=== PATIENT | male | born 1960 | race African-American/Black ===

== ENCOUNTER 2019-03-21 19:31 | Inpatient (IN) | payer MEDICAID ==
[~2019-03-21] VITALS: Ht 175.3 cm; Wt 89.0 kg
[2019-03-21] MEDS ORDERED: SODIUM CHLORIDE 0.9% 1,000 ML IV ONE ×2 (20:04→22:00)
[2019-03-21 21:54] LABS: BASOPHILS % 0.2 % (0.0-2.0); EOSINOPHILS % 0.2 % (0.0-5.0); HEMATOCRIT. 39.9 % (42.0-52.0); HEMOGLOBIN. 13.4 g/dL (14.0-18.0); LYMPHOCYTES % 14.1 % (20.0-50.0); MEAN CORPUSCULAR HEMOGLOBIN 31.7 pg (28.0-32.0); MEAN CORPUSCULAR VOLUME 94.4 fL (80.0-94.0); MEAN PLATELET VOLUME 8.3 fl (7.4-10.4); MONOCYTES % 6.9 % (2.0-8.0); NEUTROPHILS % 78.6 % (40.0-76.0); PLATELET 283 x1000/uL (130-400); RED BLOOD CELL COUNT 4.22 mill/uL (4.7-6.1)
[2019-03-21 22:48] LABS: CHLORIDE 106 mEq/L (98-107)
[2019-03-21] MEDS ORDERED: INSULIN LISPRO 100 UNITS/ML SUBCUT ONE (23:30)
[2019-03-21] MEDS ORDERED: ASPIRIN 81MG TABLET PO ONE (23:30)
[2019-03-22 00:10] LABS: INR 1.2; PARTIAL THROMBOPLASTIN TIME 25.7 sec (23.4-31.0)
[2019-03-22] MEDS ORDERED: METHOCARBAMOL 750MG TABLET PO SCH (02:15)
[2019-03-22 06:39] LABS: CLARITY URINE CLEAR (CLEAR); COLOR URINE YELLOW (YELLOW); KETONES URINE 1+ (NEGATIVE); LEUKOCYTE ESTERASE URINE NEGATIVE (NEGATIVE); NITRITE URINE NEGATIVE (NEGATIVE); OCCULT BLOOD URINE NEGATIVE (NEGATIVE); PROTEIN URINE 1+ (NEGATIVE); SPECIFIC GRAVITY URINE 1.031 (1.005-1.030)
[2019-03-22 07:02] LABS: *AMPHETAMINES SCREEN URINE NEGATIVE (NEGATIVE); *BARBITURATES SCREEN URINE NEGATIVE (NEGATIVE); *BENZODIAZEPINES SCREEN URINE NEGATIVE (NEGATIVE); *COCAINE SCREEN URINE NEGATIVE (NEGATIVE)
[2019-03-22 07:03] LABS: CANNABINOID URINE SCREEN NEGATIVE (NEGATIVE); METHADONE URINE SCREEN NEGATIVE (NEGATIVE); OPIATES URINE SCREEN NEGATIVE (NEGATIVE); PHENCYCLIDINE URINE SCREEN NEGATIVE (NEGATIVE)
[2019-03-22] MEDS ORDERED: DEXTROSE 50% WATER 50ML SYRINGE IV PRN (09:45)
[2019-03-22 10:38] VITALS: BP 138/80
[2019-03-22 12:00] VITALS: BP 148/72
[2019-03-22] MEDS: BLOOD SUGAR DIAGNOSTIC STRIP TEST SCH ×3 (13:02→20:51)
[2019-03-22] MEDS: INSULIN LISPRO 100 UNITS/ML SUBCUT SCH ×3 (13:36→21:35)
[2019-03-22] MEDS ORDERED: PNEUMOCOCCAL 23-VAL P-SAC VAC 0.5 ML IM ONE (14:45)
[2019-03-22] MEDS: SODIUM CHLORIDE 0.9% 1,000 ML IV SCH ×2 (15:44→21:29)
[2019-03-22 16:00] VITALS: BP 143/91
[2019-03-22 16:04] LABS: ETHANOL BLOOD < 10 mg/dL
[2019-03-22 16:09] LABS: CREATINE KINASE 203 IU/L (39-308)
[2019-03-22 16:10] LABS: CREATINE KINASE MB FRACTION 3.4 ng/mL (0.5-3.6)
[2019-03-22 20:00] VITALS: BP 134/89
[2019-03-23] VITALS: BP 140/93
[2019-03-23] MEDS ORDERED: ACETAMINOPHEN 325MG TABLET PO PRN
[2019-03-23 00:47] LABS: CREATINE KINASE MB FRACTION 2.1 ng/mL (0.5-3.6)
[2019-03-23 04:00] VITALS: BP 142/90
[2019-03-23] MEDS: BLOOD SUGAR DIAGNOSTIC STRIP TEST SCH ×4 (06:21→21:19)
[2019-03-23 07:00] LABS: BASOPHILS % 0.5 % (0.0-2.0); EOSINOPHILS % 0.5 % (0.0-5.0); HEMOGLOBIN. 13.7 g/dL (14.0-18.0); LYMPHOCYTES % 23.5 % (20.0-50.0); MEAN CORPUSCULAR HEMOGLOBIN 32.1 pg (28.0-32.0); MEAN CORPUSCULAR VOLUME 93.8 fL (80.0-94.0); MEAN PLATELET VOLUME 8.4 fl (7.4-10.4); MONOCYTES % 8.4 % (2.0-8.0); NEUTROPHILS % 67.1 % (40.0-76.0); PLATELET 211 x1000/uL (130-400); RED BLOOD CELL COUNT 4.27 mill/uL (4.7-6.1); RED CELL DISTRIBUTION WIDTH 14.6 % (11.6-14.6)
[2019-03-23 07:19] LABS: CHLORIDE 105 mEq/L (98-107)
[2019-03-23 07:28] LABS: PHOSPHORUS 2.1 mg/dL (2.5-4.9)
[2019-03-23 07:31] LABS: CREATINE KINASE 147 IU/L (39-308)
[2019-03-23 07:36] LABS: CREATINE KINASE MB FRACTION 2.1 ng/mL (0.5-3.6)
[2019-03-23 08:00] VITALS: BP 148/91
[2019-03-23] MEDS: SODIUM CHLORIDE 0.9% 1,000 ML IV SCH ×2 (08:45→17:31)
[2019-03-23] MEDS: INSULIN LISPRO 100 UNITS/ML SUBCUT SCH ×4 (09:50→21:16)
[2019-03-23 12:00] VITALS: BP 126/76
[2019-03-23 16:00] VITALS: BP 128/88
[2019-03-23 20:00] VITALS: BP 142/87
[2019-03-23] MEDS ORDERED: IOHEXOL-350 100 ML BOTTLE ONE (21:40)
[2019-03-23] MEDS: ENOXAPARIN 80MG/0.8ML SYR SUBCUT SCH (23:49)
[2019-03-24] VITALS (7 sets, daily range): BP systolic 124–146; BP diastolic 77–94
[2019-03-24 07:14] LABS: BASOPHILS % 0.3 % (0.0-2.0); CHLORIDE 107 mEq/L (98-107); EOSINOPHILS % 1.1 % (0.0-5.0); HEMATOCRIT. 38.3 % (42.0-52.0); HEMOGLOBIN. 12.7 g/dL (14.0-18.0); LYMPHOCYTES % 25.3 % (20.0-50.0); MEAN CORPUSCULAR HEMOGLOBIN 31.2 pg (28.0-32.0); MEAN CORPUSCULAR VOLUME 93.8 fL (80.0-94.0); MEAN PLATELET VOLUME 8.3 fl (7.4-10.4); MONOCYTES % 9.5 % (2.0-8.0); NEUTROPHILS % 63.8 % (40.0-76.0); PLATELET 203 x1000/uL (130-400); RED BLOOD CELL COUNT 4.08 mill/uL (4.7-6.1); RED CELL DISTRIBUTION WIDTH 14.5 % (11.6-14.6)
[2019-03-24] MEDS: BLOOD SUGAR DIAGNOSTIC STRIP TEST SCH ×4 (07:37→20:49)
[2019-03-24] MEDS: INSULIN LISPRO 100 UNITS/ML SUBCUT SCH ×4 (09:56→20:49)
[2019-03-24] MEDS: ENOXAPARIN 80MG/0.8ML SYR SUBCUT SCH (11:55)
[2019-03-24] MEDS: LISINOPRIL 10MG TABLET PO SCH ×2 (14:06→23:29)
[2019-03-24] MEDS ORDERED: IPRATROPIUM/ALBUTEROL 0.5-3(2.5)MG/3ML NEB HHN PRN (16:00)
[2019-03-24] MEDS: FUROSEMIDE 20MG TABLET PO SCH (18:22)
[2019-03-24] MEDS ORDERED: ENOXAPARIN 100MG/ML SYR SUBCUT SCH (23:30)
[2019-03-25] VITALS (41 sets, daily range): BP systolic 121–176; BP diastolic 73–112
[2019-03-25] MEDS: FUROSEMIDE 20MG TABLET PO SCH ×2 (05:53→18:20)
[2019-03-25 06:21] LABS: CHLORIDE 107 mEq/L (98-107)
[2019-03-25 06:24] LABS: BASOPHILS % 0.6 % (0.0-2.0); EOSINOPHILS % 1.7 % (0.0-5.0); HEMATOCRIT. 35.7 % (42.0-52.0); HEMOGLOBIN. 12.3 g/dL (14.0-18.0); LYMPHOCYTES % 32.2 % (20.0-50.0); MEAN CORPUSCULAR HEMOGLOBIN 31.9 pg (28.0-32.0); MEAN CORPUSCULAR VOLUME 92.8 fL (80.0-94.0); MONOCYTES % 9.3 % (2.0-8.0); NEUTROPHILS % 56.2 % (40.0-76.0); PLATELET 224 x1000/uL (130-400); RED BLOOD CELL COUNT 3.85 mill/uL (4.7-6.1); RED CELL DISTRIBUTION WIDTH 14.4 % (11.6-14.6)
[2019-03-25] MEDS: BLOOD SUGAR DIAGNOSTIC STRIP TEST SCH ×5 (06:32→20:26)
[2019-03-25 06:51] LABS: INR 1.2
[2019-03-25] MEDS: INSULIN LISPRO 100 UNITS/ML SUBCUT SCH ×4 (08:03→20:26)
[2019-03-25] MEDS: LISINOPRIL 10MG TABLET PO SCH (09:27)
[2019-03-25] MEDS ORDERED: MIDAZOLAM HCL 2 MG/2 ML VIAL ONE (10:40)
[2019-03-25] MEDS ORDERED: FENTANYL CITRATE/PF 50MCG/ML 2ML VIAL ONE (10:40)
[2019-03-25] MEDS ORDERED: MIDAZOLAM HCL 5 MG/5 ML VIAL IV ONE (10:50)
[2019-03-25] MEDS ORDERED: ALTEPLASE 4 MG in SODIUM CHLORIDE 0.9% 100 ML IV SCH ×8 (11:00→18:00)
[2019-03-25] MEDS ORDERED: HEPARIN 25,000 UNITS PREMIX 500 ML IV SCH (11:00)
[2019-03-25] MEDS ORDERED: IOHEXOL-300 50 ML BOTTLE IV ONE (11:34)
[2019-03-25] MEDS ORDERED: MIDAZOLAM HCL 2 MG/2 ML VIAL IV ONE (11:45)
[2019-03-25] MEDS ORDERED: NON FORMULARY PATIENT HOME MED XX SCH ×2 (12:45→13:00)
[2019-03-25] MEDS: POTASSIUM CHLORIDE 20MEQ TABLET SR PO SCH (14:38)
[2019-03-25] MEDS: ADEMPAS 0.5 MG PO SCH ×2 (17:02→22:00)
[2019-03-25] MEDS: LISINOPRIL 5MG TABLET PO SCH (20:23)
[2019-03-25 21:10] LABS: BASOPHILS % 0.6 % (0.0-2.0); EOSINOPHILS % 1.1 % (0.0-5.0); HEMATOCRIT. 38.6 % (42.0-52.0); HEMOGLOBIN. 12.9 g/dL (14.0-18.0); LYMPHOCYTES % 20.9 % (20.0-50.0); MEAN CORPUSCULAR HEMOGLOBIN 31.4 pg (28.0-32.0); MEAN CORPUSCULAR VOLUME 94.3 fL (80.0-94.0); MEAN PLATELET VOLUME 8.3 fl (7.4-10.4); MONOCYTES % 9.3 % (2.0-8.0); NEUTROPHILS % 68.1 % (40.0-76.0); PLATELET 238 x1000/uL (130-400); RED CELL DISTRIBUTION WIDTH 15.2 % (11.6-14.6)
[2019-03-25 21:17] LABS: INR 1.1; PROTHROMBIN TIME 11.2 sec (9.6-11.0)
[2019-03-26] VITALS (24 sets, daily range): BP systolic 111–153; BP diastolic 53–95
[2019-03-26 01:33] LABS: BASOPHILS % 0.4 % (0.0-2.0); EOSINOPHILS % 1.3 % (0.0-5.0); HEMOGLOBIN. 12.8 g/dL (14.0-18.0); LYMPHOCYTES % 22.4 % (20.0-50.0); MEAN CORPUSCULAR HEMOGLOBIN 31.5 pg (28.0-32.0); MEAN CORPUSCULAR VOLUME 93.6 fL (80.0-94.0); MEAN PLATELET VOLUME 7.1 fl (7.4-10.4); MONOCYTES % 11.1 % (2.0-8.0); NEUTROPHILS % 64.8 % (40.0-76.0); PLATELET 212 x1000/uL (130-400); RED BLOOD CELL COUNT 4.06 mill/uL (4.7-6.1); RED CELL DISTRIBUTION WIDTH 14.9 % (11.6-14.6)
[2019-03-26 01:41] LABS: INR 1.2; PROTHROMBIN TIME 11.9 sec (9.6-11.0)
[2019-03-26] MEDS ORDERED: ALTEPLASE IV SCH ×4 (02:00)
[2019-03-26] MEDS ORDERED: SODIUM CHLORIDE 0.9% IV SCH ×4 (02:00)
[2019-03-26 05:24] LABS: BASOPHILS % 0.8 % (0.0-2.0); EOSINOPHILS % 1.6 % (0.0-5.0); HEMATOCRIT. 36.1 % (42.0-52.0); HEMOGLOBIN. 12.1 g/dL (14.0-18.0); LYMPHOCYTES % 20.7 % (20.0-50.0); MEAN CORPUSCULAR HEMOGLOBIN 31.3 pg (28.0-32.0); MEAN CORPUSCULAR VOLUME 93.4 fL (80.0-94.0); MONOCYTES % 10.7 % (2.0-8.0); NEUTROPHILS % 66.2 % (40.0-76.0); PLATELET 207 x1000/uL (130-400); RED BLOOD CELL COUNT 3.86 mill/uL (4.7-6.1); RED CELL DISTRIBUTION WIDTH 14.7 % (11.6-14.6)
[2019-03-26 05:27] LABS: CHLORIDE 107 mEq/L (98-107)
[2019-03-26] MEDS: FUROSEMIDE 20MG TABLET PO SCH ×2 (06:01→19:19)
[2019-03-26] MEDS: BLOOD SUGAR DIAGNOSTIC STRIP TEST SCH ×4 (08:12→20:45)
[2019-03-26] MEDS: INSULIN LISPRO 100 UNITS/ML SUBCUT SCH ×4 (08:20→20:45)
[2019-03-26] MEDS ORDERED: HEPARIN 25,000 UNITS PREMIX 500 ML IV SCH (10:30)
[2019-03-26] MEDS ORDERED: HEPARIN 5000 UNITS/ML VIAL IV PRN ×2 (10:45)
[2019-03-26] MEDS ORDERED: HEPARIN 25,000 UNITS PREMIX 500 ML IV PRN (10:45)
[2019-03-26] MEDS: POTASSIUM CHLORIDE 20MEQ TABLET SR PO SCH ×2 (10:46→10:47)
[2019-03-26] MEDS: ADEMPAS 0.5 MG PO SCH ×2 (10:48→20:45)
[2019-03-26] MEDS: LISINOPRIL 5MG TABLET PO SCH ×2 (10:48→20:45)
[2019-03-26] MEDS ORDERED: IOHEXOL-350 100 ML BOTTLE ONE (10:54)
[2019-03-26] MEDS: APIXABAN 5 MG TABLET PO SCH ×2 (12:19→20:45)
[2019-03-27] VITALS (24 sets, daily range): BP systolic 112–156; BP diastolic 66–87
[2019-03-27 06:03] LABS: BASOPHILS % 0.5 % (0.0-2.0); EOSINOPHILS % 1.4 % (0.0-5.0); HEMATOCRIT. 40.4 % (42.0-52.0); HEMOGLOBIN. 13.6 g/dL (14.0-18.0); LYMPHOCYTES % 20.3 % (20.0-50.0); MEAN CORPUSCULAR HEMOGLOBIN 31.4 pg (28.0-32.0); MEAN CORPUSCULAR VOLUME 93.1 fL (80.0-94.0); MEAN PLATELET VOLUME 7.7 fl (7.4-10.4); MONOCYTES % 11.2 % (2.0-8.0); NEUTROPHILS % 66.6 % (40.0-76.0); PLATELET 235 x1000/uL (130-400); RED BLOOD CELL COUNT 4.34 mill/uL (4.7-6.1); RED CELL DISTRIBUTION WIDTH 14.8 % (11.6-14.6)
[2019-03-27 06:05] LABS: CHLORIDE 105 mEq/L (98-107)
[2019-03-27] MEDS: FUROSEMIDE 20MG TABLET PO SCH ×2 (06:50→17:27)
[2019-03-27] MEDS: BLOOD SUGAR DIAGNOSTIC STRIP TEST SCH ×4 (07:50→21:08)
[2019-03-27] MEDS: INSULIN LISPRO 100 UNITS/ML SUBCUT SCH ×4 (08:20→21:38)
[2019-03-27] MEDS: APIXABAN 5 MG TABLET PO SCH ×2 (08:55→17:27)
[2019-03-27] MEDS: LISINOPRIL 5MG TABLET PO SCH ×2 (08:55→21:08)
[2019-03-27] MEDS: ADEMPAS 0.5 MG PO SCH ×2 (08:55→21:08)
[2019-03-28] VITALS (19 sets, daily range): BP systolic 100–140; BP diastolic 36–91
[2019-03-28] MEDS: BLOOD SUGAR DIAGNOSTIC STRIP TEST SCH ×3 (07:50→21:00)
[2019-03-28] MEDS: FUROSEMIDE 20MG TABLET PO SCH ×2 (08:00→17:36)
[2019-03-28] MEDS: LISINOPRIL 5MG TABLET PO SCH ×2 (08:00→21:51)
[2019-03-28] MEDS: INSULIN LISPRO 100 UNITS/ML SUBCUT SCH ×4 (08:01→22:22)
[2019-03-28] MEDS: APIXABAN 5 MG TABLET PO SCH ×2 (08:01→17:36)
[2019-03-28] MEDS: POTASSIUM CHLORIDE 20MEQ TABLET SR PO SCH (08:02)
[2019-03-28] MEDS: ADEMPAS 0.5 MG PO SCH (08:02)
[2019-03-28 16:29] LABS: CHLORIDE 104 mEq/L (98-107)
[2019-03-29] VITALS (22 sets, daily range): BP systolic 97–141; BP diastolic 43–86
[2019-03-29] MEDS: FUROSEMIDE 20MG TABLET PO SCH ×2 (06:05→17:32)
[2019-03-29] MEDS: BLOOD SUGAR DIAGNOSTIC STRIP TEST SCH ×4 (06:15→20:34)
[2019-03-29] MEDS: INSULIN LISPRO 100 UNITS/ML SUBCUT SCH ×4 (07:52→20:34)
[2019-03-29] MEDS: APIXABAN 5 MG TABLET PO SCH ×2 (10:10→17:32)
[2019-03-29] MEDS: POTASSIUM CHLORIDE 20MEQ TABLET SR PO SCH (10:10)
[2019-03-29] MEDS: LISINOPRIL 5MG TABLET PO SCH ×2 (10:11→20:35)
[2019-03-29 18:19] LABS: HEMATOCRIT 42.6 % (42.0-52.0); HEMOGLOBIN 14.2 g/dL (14.0-18.0); MEAN CORPUSCULAR HEMOGLOBIN 31.1 pg (28.0-32.0); MEAN CORPUSCULAR VOLUME 93.4 fL (80.0-94.0); PLATELET 328 x1000/uL (130-400); RED BLOOD CELL COUNT 4.56 mill/uL (4.7-6.1); RED CELL DISTRIBUTION WIDTH 14.9 % (11.6-14.6)
[2019-03-29] MEDS: ADEMPAS 0.5 MG PO SCH (20:55)
[2019-03-30] VITALS (15 sets, daily range): BP systolic 99–132; BP diastolic 46–89
[2019-03-30] MEDS: FUROSEMIDE 20MG TABLET PO SCH ×2 (05:42→17:11)
[2019-03-30] MEDS: BLOOD SUGAR DIAGNOSTIC STRIP TEST SCH ×4 (06:38→21:01)
[2019-03-30 07:30] LABS: BASOPHILS % 1.3 % (0.0-2.0); EOSINOPHILS % 2.6 % (0.0-5.0); HEMATOCRIT. 43.8 % (42.0-52.0); HEMOGLOBIN. 14.8 g/dL (14.0-18.0); LYMPHOCYTES % 24.7 % (20.0-50.0); MEAN CORPUSCULAR HEMOGLOBIN 31.6 pg (28.0-32.0); MEAN CORPUSCULAR VOLUME 93.5 fL (80.0-94.0); MEAN PLATELET VOLUME 7.7 fl (7.4-10.4); MONOCYTES % 11.5 % (2.0-8.0); NEUTROPHILS % 59.9 % (40.0-76.0); PLATELET 348 x1000/uL (130-400); RED BLOOD CELL COUNT 4.69 mill/uL (4.7-6.1); RED CELL DISTRIBUTION WIDTH 14.7 % (11.6-14.6)
[2019-03-30] MEDS: INSULIN LISPRO 100 UNITS/ML SUBCUT SCH ×4 (07:53→20:59)
[2019-03-30] MEDS: POTASSIUM CHLORIDE 20MEQ TABLET SR PO SCH (08:25)
[2019-03-30] MEDS: APIXABAN 5 MG TABLET PO SCH ×2 (08:26→17:11)
[2019-03-30] MEDS: ADEMPAS 0.5 MG PO SCH ×2 (08:26→20:57)
[2019-03-30] MEDS: LISINOPRIL 5MG TABLET PO SCH ×2 (08:26→20:57)
[2019-03-30 10:43] LABS: CHLORIDE 102 mEq/L (98-107)
[2019-03-30] MEDS ORDERED: EMPA25TA PO (15:39)
[2019-03-30] MEDS ORDERED: METF-815 MT (15:39)
[2019-03-31] VITALS (14 sets, daily range): BP systolic 105–140; BP diastolic 39–87
[2019-03-31] MEDS: FUROSEMIDE 20MG TABLET PO SCH (06:07)
[2019-03-31] MEDS: BLOOD SUGAR DIAGNOSTIC STRIP TEST SCH ×2 (07:06→11:50)
[2019-03-31] MEDS: APIXABAN 5 MG TABLET PO SCH (07:46)
[2019-03-31] MEDS: POTASSIUM CHLORIDE 20MEQ TABLET SR PO SCH (07:46)
[2019-03-31] MEDS: ADEMPAS 0.5 MG PO SCH (07:47)
[2019-03-31] MEDS: INSULIN LISPRO 100 UNITS/ML SUBCUT SCH ×2 (07:51→12:37)
[2019-03-31] MEDS: LISINOPRIL 5MG TABLET PO SCH (10:43)
[2019-04-05] MEDS ORDERED: APIXABAN 5 MG TABLET PO SCH (17:00)
== END 2019-03-31 18:25 | disposition home or self-care (01) | DRG 134 ==
LOC: ER 19:31 → 7WST 03-22 00:44 → EDBEDREQ 03-22 01:10 → EDBEDREQTM 03-22 01:10 → EDBEDREQDT 03-22 01:10 → ENRESERV 03-22 07:39 → 6WST 03-22 20:15 → CVICU 03-25 12:36 → 3WST 03-28 12:40
PROVIDERS: ADMIT Internal Medicine Nephrology; ATTEND Internal Medicine Nephrology
PROC: 4A133B3 Monitoring of Arterial Pressure, Pulmonary, Percutaneous Approach (ICD-10-PCS; principal; 2019-03-25)
PROC: 02HP32Z Insertion of Monitoring Device into Pulmonary Trunk, Percutaneous Approach (ICD-10-PCS; 2019-03-25)
PROC: 3E06317 Introduction of Other Thrombolytic into Central Artery, Percutaneous Approach (ICD-10-PCS; 2019-03-25)
DX: I26.99 Other pulmonary embolism without acute cor pulmonale (principal); I21.4 Non-ST elevation (NSTEMI) myocardial infarction; J96.00 Acute respiratory failure, unspecified whether with hypoxia or hypercapnia; I27.22 Pulmonary hypertension due to left heart disease; I50.23 Acute on chronic systolic (congestive) heart failure; D68.59 Other primary thrombophilia; I27.23 Pulmonary hypertension due to lung diseases and hypoxia; I11.0 Hypertensive heart disease with heart failure; I82.402 Acute embolism and thrombosis of unspecified deep veins of left lower extremity; I42.9 Cardiomyopathy, unspecified; J45.909 Unspecified asthma, uncomplicated; Z77.22 Contact with and (suspected) exposure to environmental tobacco smoke (acute) (chronic); W18.30XA Fall on same level, unspecified, initial encounter; E11.9 Type 2 diabetes mellitus without complications; R74.0 Nonspecific elevation of levels of transaminase and lactic acid dehydrogenase [LDH]; Z86.718 Personal history of other venous thrombosis and embolism
CPT/HCPCS: 36415; 37211; 70551; 71045; 71275; 75741; 80048; 80305; 80320; 82550; 82553; 82962; 83735; 83880; 84100; 84484; 85027; 85384; 90732; 93005; 93306; 93970; 96360; 96361; 96372; 97161; 97164; 99152; 99153; 99285; C1725; C1766; C1769; J1644; J1650; J1815; J2250; J2997; J3010; J7030; J7040; J7050; Q9967; G0480; G0500

== ENCOUNTER 2020-07-18 20:12 | Emergency (ER) | payer MEDICAID ==
[~2020-07-18] VITALS: Ht 175.3 cm; Wt 81.0 kg
[~2020-07-18 20:12] MED LIST: METF-815 MT
[2020-07-18 22:18] LABS: BASOPHILS % 0.6 % (0.0-2.0); EOSINOPHILS % 0.9 % (0.0-5.0); HEMATOCRIT. 38.4 % (42.0-52.0); HEMOGLOBIN. 13.2 g/dL (14.0-18.0); LYMPHOCYTES % 17.2 % (20.0-50.0); MEAN CORPUSCULAR HEMOGLOBIN 31.1 pg (28.0-32.0); MEAN CORPUSCULAR VOLUME 90.8 fL (80.0-94.0); MEAN PLATELET VOLUME 7.9 fl (7.4-10.4); MONOCYTES % 12.1 % (2.0-8.0); NEUTROPHILS % 69.2 % (40.0-76.0); PLATELET 293 x1000/uL (130-400); RED BLOOD CELL COUNT 4.23 mill/uL (4.7-6.1)
[2020-07-18 22:20] LABS: CHLORIDE 101 mEq/L (98-107)
[2020-07-18 22:24] LABS: ETHANOL BLOOD < 10 mg/dL
[2020-07-18 22:49] LABS: CLARITY URINE CLEAR (CLEAR); COLOR URINE DARK YELLOW (YELLOW); KETONES URINE TRACE (NEGATIVE); LEUKOCYTE ESTERASE URINE TRACE (NEGATIVE); NITRITE URINE NEGATIVE (NEGATIVE); OCCULT BLOOD URINE NEGATIVE (NEGATIVE); PROTEIN URINE 2+ (NEGATIVE); SPECIFIC GRAVITY URINE 1.025 (1.005-1.030)
[2020-07-18 23:07] LABS: *AMPHETAMINES SCREEN URINE NEGATIVE (NEGATIVE); *BARBITURATES SCREEN URINE NEGATIVE (NEGATIVE); *BENZODIAZEPINES SCREEN URINE NEGATIVE (NEGATIVE); *COCAINE SCREEN URINE NEGATIVE (NEGATIVE); METHADONE URINE SCREEN NEGATIVE (NEGATIVE); OPIATES URINE SCREEN NEGATIVE (NEGATIVE)
[2020-07-18 23:08] LABS: CANNABINOID URINE SCREEN NEGATIVE (NEGATIVE)
[2020-07-18 23:09] LABS: PHENCYCLIDINE URINE SCREEN NEGATIVE (NEGATIVE)
[2020-07-18] MEDS ORDERED: IPRATROPIUM BROMIDE (0.02%) 0.5MG/2.5ML NEB HHN STA (23:56)
[2020-07-18] MEDS ORDERED: ALBUTEROL (0.083%) 2.5MG/3ML NEB HHN STA (23:56)
[2020-07-19] MEDS ORDERED: DEXAMETHASONE 10 MG/ML VIAL IV ONE
[2020-07-19 02:01] VITALS: BP 117/74
== END 2020-07-19 02:03 | disposition home or self-care (01) ==
LOC: ER 20:12
DX: Z20.828 Contact with and (suspected) exposure to other viral communicable diseases (principal); I10 Essential (primary) hypertension; E11.9 Type 2 diabetes mellitus without complications; Z86.718 Personal history of other venous thrombosis and embolism; Z86.711 Personal history of pulmonary embolism
CPT/HCPCS: 36415; 71045; 80053; 80305; 80320; 81003; 83880; 84484; 85025; 87635; 93005; 94640; 96374; 99285; J1100; Z7610; G0480

== ENCOUNTER 2021-07-24 11:12 | Emergency (ER) | payer MEDICAID ==
[~2021-07-24] VITALS: Ht 175.3 cm; Wt 103.0 kg
[~2021-07-24 11:12] MED LIST changes: -METF-815 MT; +METF-873 MT
[2021-07-24 11:16] VITALS: BP 137/66
[2021-07-24] MEDS ORDERED: APIX5TAB4 PO (11:20)
[2021-07-24] MEDS ORDERED: NITROGLYCERIN 0.4MG TABLET SL SL PRN (11:30)
[2021-07-24] MEDS ORDERED: ASPIRIN 81MG TABLET PO ONE (11:30)
[2021-07-24 11:46] LABS: EOSINOPHILS % 2.1 % (0.0-5.0); HEMATOCRIT. 35.2 % (42.0-52.0); HEMOGLOBIN. 11.7 g/dL (14.0-18.0); MEAN CORPUSCULAR HEMOGLOBIN 31.4 pg (28.0-32.0); MEAN CORPUSCULAR VOLUME 94.1 fL (80.0-94.0); MEAN PLATELET VOLUME 7.9 fl (7.4-10.4); MONOCYTES % 8.3 % (2.0-8.0); NEUTROPHILS % 64.6 % (40.0-76.0); PLATELET 299 x1000/uL (130-400); RED BLOOD CELL COUNT 3.74 mill/uL (4.7-6.1); RED CELL DISTRIBUTION WIDTH 14.2 % (11.6-14.6)
[2021-07-24 11:52] LABS: CHLORIDE 105 mEq/L (98-107)
[2021-07-24] MEDS ORDERED: IOHEXOL-350 100 ML BOTTLE ONE (17:37)
== END 2021-07-24 17:24 | disposition home or self-care (01) ==
LOC: ER 11:12
DX: R07.89 Other chest pain (principal); I48.91 Unspecified atrial fibrillation; E11.9 Type 2 diabetes mellitus without complications; I10 Essential (primary) hypertension
CPT/HCPCS: 36415; 71045; 71275; 80053; 83880; 84484; 85025; 93005; 99285; Q9967; Z7610

== ENCOUNTER 2022-08-06 20:24 | Inpatient (IN) | payer MEDICAID ==
[~2022-08-06] VITALS: Ht 175.3 cm; Wt 99.9 kg
[~2022-08-06 20:24] MED LIST changes: +APIX5TAB4 PO
[2022-08-06] MEDS ORDERED: HYDROCODONE/ACETAMINOPHEN 5/325MG TABLET PO ONE (23:45)
[2022-08-07 00:04] LABS: BASOPHILS % 0.7 % (0.0-2.0); EOSINOPHILS % 1.8 % (0.0-5.0); HEMATOCRIT. 36.3 % (42.0-52.0); HEMOGLOBIN. 12.3 g/dL (14.0-18.0); LYMPHOCYTES % 27.8 % (20.0-50.0); MEAN CORPUSCULAR HEMOGLOBIN 31.4 pg (28.0-32.0); MEAN CORPUSCULAR VOLUME 92.9 fL (80.0-94.0); MEAN PLATELET VOLUME 7.3 fl (7.4-10.4); MONOCYTES % 10.3 % (2.0-8.0); NEUTROPHILS % 59.4 % (40.0-76.0); PLATELET 328 x1000/uL (130-400); RED BLOOD CELL COUNT 3.91 mill/uL (4.7-6.1); RED CELL DISTRIBUTION WIDTH 14.2 % (11.6-14.6)
[2022-08-07 03:40] LABS: CLARITY URINE CLEAR (CLEAR); COLOR URINE YELLOW (YELLOW); KETONES URINE TRACE (NEGATIVE); LEUKOCYTE ESTERASE URINE NEGATIVE (NEGATIVE); NITRITE URINE NEGATIVE (NEGATIVE); OCCULT BLOOD URINE NEGATIVE (NEGATIVE); PROTEIN URINE 1+ (NEGATIVE); SPECIFIC GRAVITY URINE 1.029 (1.005-1.030)
[2022-08-07] MEDS ORDERED: CLONIDINE 0.1MG TABLET PO PRN (05:00)
[2022-08-07] MEDS ORDERED: MAGNESIUM/ALUMINUM HYDROXIDE/SIMETHICONE 30ML UDC PO PRN (05:00)
[2022-08-07] MEDS ORDERED: HYDROCODONE/ACETAMINOPHEN 5/325MG TABLET PO PRN (05:00)
[2022-08-07] MEDS ORDERED: DEXTROSE 50% WATER 50ML SYRINGE IV PRN ×2 (05:00→15:15)
[2022-08-07] MEDS ORDERED: IPRATROPIUM/ALBUTEROL 0.5-3(2.5)MG/3ML NEB HHN PRN (05:00)
[2022-08-07] MEDS ORDERED: ACETAMINOPHEN 325MG TABLET PO PRN ×2 (05:00)
[2022-08-07] MEDS ORDERED: ONDANSETRON HCL 4MG/2ML INJ IV PRN (05:00)
[2022-08-07] MEDS ORDERED: GUAIFENESIN 200MG/10ML SUGAR FREE UDC PO PRN (05:00)
[2022-08-07] MEDS ORDERED: DOCUSATE SODIUM 100MG CAPSULE PO PRN (05:00)
[2022-08-07] MEDS ORDERED: ENOXAPARIN 100MG/ML SYR SUBCUT NR (05:45)
[2022-08-07 06:15] LABS: PARTIAL THROMBOPLASTIN TIME 29.3 sec (23.4-31.0); PROTHROMBIN TIME 10.7 sec (9.6-11.0)
[2022-08-07 06:46] LABS: BASOPHILS % 0.6 % (0.0-2.0); HEMATOCRIT. 35.2 % (42.0-52.0); LYMPHOCYTES % 27.9 % (20.0-50.0); MEAN CORPUSCULAR HEMOGLOBIN 31.3 pg (28.0-32.0); MEAN CORPUSCULAR VOLUME 92.1 fL (80.0-94.0); MEAN PLATELET VOLUME 7.9 fl (7.4-10.4); NEUTROPHILS % 57.5 % (40.0-76.0); PLATELET 310 x1000/uL (130-400); RED BLOOD CELL COUNT 3.82 mill/uL (4.7-6.1); RED CELL DISTRIBUTION WIDTH 14.4 % (11.6-14.6)
[2022-08-07] MEDS ORDERED: INSULIN LISPRO 100 UNITS/ML SUBCUT SCH (08:20)
[2022-08-07] MEDS ORDERED: BLOOD SUGAR DIAGNOSTIC STRIP TEST SCH (09:00)
[2022-08-07 12:30] VITALS: BP 147/87
[2022-08-07 13:05] VITALS: BP 147/87
[2022-08-07 14:53] LABS: CHLORIDE 103 mEq/L (98-107)
[2022-08-07 16:20] VITALS: BP 155/85
[2022-08-07] MEDS: BLOOD SUGAR DIAGNOSTIC STRIP TEST SCH ×2 (16:48→22:18)
[2022-08-07] MEDS ORDERED: METFORMIN HCL 500MG TABLET PO SCH (17:00)
[2022-08-07] MEDS: METFORMIN HCL 500MG TABLET PO SCH ×2 (17:40→17:50)
[2022-08-07] MEDS: APIXABAN 5 MG TABLET PO SCH (17:50)
[2022-08-07] MEDS: GLIPIZIDE XL 2.5MG TABLET PO SCH (17:50)
[2022-08-07] MEDS: INSULIN LISPRO 100 UNITS/ML SUBCUT SCH ×2 (17:54→22:20)
[2022-08-07 20:00] VITALS: BP 117/71
[2022-08-07] MEDS ORDERED: NALOXONE HCL 0.4MG/ML VIAL IV PRN (20:00)
[2022-08-07 20:14] LABS: HDL CHOLESTEROL 38 mg/dL (40-59); LDL CHOLESTEROL 170 mg/dL (5-100)
[2022-08-07 20:15] LABS: T4 FREE 1.33 ng/dL (0.76-1.46)
[2022-08-07] MEDS ORDERED: INFLUENZA VACCINE 05/PF 0.5 ML SYRINGE IM ONE (20:45)
[2022-08-07] MEDS: CARVEDILOL 3.125 MG TABLET PO SCH (22:21)
[2022-08-07 23:53] LABS: *AMPHETAMINES SCREEN URINE NEGATIVE (NEGATIVE); *BARBITURATES SCREEN URINE NEGATIVE (NEGATIVE); *BENZODIAZEPINES SCREEN URINE NEGATIVE (NEGATIVE); *COCAINE SCREEN URINE NEGATIVE (NEGATIVE); CANNABINOID URINE SCREEN NEGATIVE (NEGATIVE); METHADONE URINE SCREEN NEGATIVE (NEGATIVE); OPIATES URINE SCREEN PRESUMTIVE POSITIVE (NEGATIVE); PHENCYCLIDINE URINE SCREEN NEGATIVE (NEGATIVE)
[2022-08-08] VITALS: BP 122/69
[2022-08-08 00:56] LABS: CREATINE KINASE 173 IU/L (39-308)
[2022-08-08 04:00] VITALS: BP 127/76
[2022-08-08] MEDS: BLOOD SUGAR DIAGNOSTIC STRIP TEST SCH ×4 (06:42→20:29)
[2022-08-08] MEDS: INSULIN LISPRO 100 UNITS/ML SUBCUT SCH ×4 (06:50→20:29)
[2022-08-08 07:11] LABS: BASOPHILS % 0.9 % (0.0-2.0); EOSINOPHILS % 1.9 % (0.0-5.0); HEMATOCRIT. 36.1 % (42.0-52.0); LYMPHOCYTES % 20.6 % (20.0-50.0); MEAN CORPUSCULAR HEMOGLOBIN 31.1 pg (28.0-32.0); MEAN CORPUSCULAR VOLUME 93.5 fL (80.0-94.0); MEAN PLATELET VOLUME 8.2 fl (7.4-10.4); MONOCYTES % 8.5 % (2.0-8.0); NEUTROPHILS % 68.1 % (40.0-76.0); PLATELET 313 x1000/uL (130-400); RED BLOOD CELL COUNT 3.86 mill/uL (4.7-6.1); RED CELL DISTRIBUTION WIDTH 14.3 % (11.6-14.6)
[2022-08-08 08:00] VITALS: BP 129/75
[2022-08-08] MEDS: GLIPIZIDE XL 2.5MG TABLET PO SCH ×2 (08:20→17:09)
[2022-08-08] MEDS: APIXABAN 5 MG TABLET PO SCH ×2 (08:21→17:09)
[2022-08-08] MEDS: CARVEDILOL 3.125 MG TABLET PO SCH ×2 (08:21→20:30)
[2022-08-08] MEDS: LISINOPRIL 5MG TABLET PO SCH (08:21)
[2022-08-08] MEDS: METFORMIN HCL 500MG TABLET PO SCH ×2 (08:21→17:09)
[2022-08-08] MEDS: FUROSEMIDE 40MG TABLET PO SCH (08:24)
[2022-08-08 12:00] VITALS: BP 136/59
[2022-08-08 16:00] VITALS: BP 139/76
[2022-08-08] MEDS ORDERED: DOXA1TAB2 PO (18:24)
[2022-08-08] MEDS ORDERED: CARV3.1242 PO (18:24)
[2022-08-08] MEDS ORDERED: APIX5TAB PO (18:24)
[2022-08-08] MEDS ORDERED: METF-414 PO (18:24)
[2022-08-08 20:00] VITALS: BP 139/76
[2022-08-08 20:37] LABS: CHLORIDE 106 mEq/L (98-107)
[2022-08-09] VITALS: BP 120/87
[2022-08-09 04:00] VITALS: BP 131/82
[2022-08-09] MEDS: BLOOD SUGAR DIAGNOSTIC STRIP TEST SCH ×3 (06:46→16:42)
[2022-08-09] MEDS: INSULIN LISPRO 100 UNITS/ML SUBCUT SCH ×3 (06:46→17:22)
[2022-08-09 07:43] LABS: BASOPHILS % 0.6 % (0.0-2.0); EOSINOPHILS % 1.8 % (0.0-5.0); HEMATOCRIT. 36.5 % (42.0-52.0); HEMOGLOBIN. 12.5 g/dL (14.0-18.0); LYMPHOCYTES % 27.4 % (20.0-50.0); MEAN CORPUSCULAR HEMOGLOBIN 31.5 pg (28.0-32.0); MEAN CORPUSCULAR VOLUME 92.3 fL (80.0-94.0); MEAN PLATELET VOLUME 8.2 fl (7.4-10.4); MONOCYTES % 8.8 % (2.0-8.0); NEUTROPHILS % 61.4 % (40.0-76.0); PLATELET 348 x1000/uL (130-400); RED BLOOD CELL COUNT 3.96 mill/uL (4.7-6.1)
[2022-08-09 08:00] VITALS: BP 127/73
[2022-08-09] MEDS: METFORMIN HCL 500MG TABLET PO SCH ×2 (08:29→16:47)
[2022-08-09] MEDS: APIXABAN 5 MG TABLET PO SCH ×2 (08:41→16:42)
[2022-08-09] MEDS: CARVEDILOL 3.125 MG TABLET PO SCH (08:41)
[2022-08-09] MEDS: FUROSEMIDE 40MG TABLET PO SCH (08:41)
[2022-08-09] MEDS: GLIPIZIDE XL 2.5MG TABLET PO SCH ×2 (08:42→16:42)
[2022-08-09] MEDS: LISINOPRIL 5MG TABLET PO SCH (08:42)
[2022-08-09 10:48] LABS: CHLORIDE 104 mEq/L (98-107)
[2022-08-09] MEDS ORDERED: LISI-186 PO (11:32)
[2022-08-09] MEDS ORDERED: METF-414 PO (11:32)
[2022-08-09] MEDS ORDERED: FURO40TA5 PO (11:32)
[2022-08-09 12:00] VITALS: BP 102/56
[2022-08-09 16:00] VITALS: BP 112/67
[2022-08-09 17:49] VITALS: BP 112/67
[2022-08-10 09:10] LABS: IMMUNOGLOBULIN A 263 mg/dL (61-437); IMMUNOGLOBULIN G 1551 mg/dL (603-1613); IMMUNOGLOBULIN M 70 mg/dL (20-172)
== END 2022-08-09 19:25 | disposition home health service (06) | DRG 347 ==
LOC: ER 20:24 → 8WST 08-07 02:51 → EDBEDREQSVC 08-07 08:48
PROVIDERS: ADMIT Internal Medicine; ATTEND Internal Medicine
DX: M48.061 Spinal stenosis, lumbar region without neurogenic claudication (principal); E11.51 Type 2 diabetes mellitus with diabetic peripheral angiopathy without gangrene; I82.509 Chronic embolism and thrombosis of unspecified deep veins of unspecified lower extremity; I50.22 Chronic systolic (congestive) heart failure; I11.0 Hypertensive heart disease with heart failure; D64.9 Anemia, unspecified; G89.29 Other chronic pain; I10 Essential (primary) hypertension; I48.91 Unspecified atrial fibrillation; M51.17 Intervertebral disc disorders with radiculopathy, lumbosacral region; Z20.822 Contact with and (suspected) exposure to COVID-19; Z79.01 Long term (current) use of anticoagulants; Z79.899 Other long term (current) drug therapy; Z86.711 Personal history of pulmonary embolism; Z79.84 Long term (current) use of oral hypoglycemic drugs; Z95.828 Presence of other vascular implants and grafts; Z82.49 Family history of ischemic heart disease and other diseases of the circulatory system
CPT/HCPCS: 36415; 71045; 72100; 72148; 80053; 80061; 80305; 81003; 82550; 82784; 82962; 83036; 83735; 84100; 84153; 84439; 84443; 85025; 86334; 87426; 90686; 93005; 93970; 99285; J1650; J1815; G0103

== ENCOUNTER 2022-10-08 12:12 | Inpatient (IN) | payer MEDICAID ==
[~2022-10-08] VITALS: Ht 175.3 cm; Wt 95.7 kg
[~2022-10-08 12:12] MED LIST changes: +APIX5TAB PO; -APIX5TAB4 PO; +CARV3.1242 PO; +DOXA1TAB2 PO; +FURO40TA5 PO; +LISI-186 PO; +METF-414 PO; -METF-873 MT
[2022-10-08 14:48] LABS: BASOPHILS % 0.7 % (0.0-2.0); EOSINOPHILS % 1.4 % (0.0-5.0); HEMATOCRIT. 34.7 % (42.0-52.0); HEMOGLOBIN. 11.7 g/dL (14.0-18.0); LYMPHOCYTES % 22.4 % (20.0-50.0); MEAN CORPUSCULAR HEMOGLOBIN 31.1 pg (28.0-32.0); MEAN CORPUSCULAR VOLUME 92.6 fL (80.0-94.0); MEAN PLATELET VOLUME 8.2 fl (7.4-10.4); MONOCYTES % 7.6 % (2.0-8.0); NEUTROPHILS % 67.9 % (40.0-76.0); PLATELET 289 x1000/uL (130-400); RED BLOOD CELL COUNT 3.75 mill/uL (4.7-6.1); RED CELL DISTRIBUTION WIDTH 14.4 % (11.6-14.6)
[2022-10-08 14:54] LABS: CHLORIDE 106 mEq/L (98-107)
[2022-10-08 14:58] LABS: D-DIMER 0.42 mg/L FEU (<0.50); PROTHROMBIN TIME 10.9 sec (9.6-11.0)
[2022-10-08] MEDS ORDERED: IOHEXOL-350 100 ML BOTTLE ONE (16:10)
[2022-10-08 20:30] VITALS: BP 128/78
[2022-10-08 21:00] VITALS: BP 128/78
[2022-10-08] MEDS ORDERED: ACETAMINOPHEN 325MG TABLET PO PRN (21:27)
[2022-10-08] MEDS ORDERED: HYDROCODONE/ACETAMINOPHEN 5/325MG TABLET PO PRN (21:27)
[2022-10-08] MEDS ORDERED: CEFTRIAXONE 1,000 MG in DEXTROSE 5% WATER 50 ML IV SCH (23:00)
[2022-10-09] VITALS: BP 114/59
[2022-10-09] MEDS ORDERED: IPRATROPIUM/ALBUTEROL 0.5-3(2.5)MG/3ML NEB HHN SCH
[2022-10-09] MEDS ORDERED: AZITHROMYCIN 500 MG in DEXT 5% WATER 250 ML IV NR ×2
[2022-10-09] MEDS: ALBUTEROL (0.083%) 2.5MG/3ML NEB HHN SCH ×4 (01:14→12:25)
[2022-10-09] MEDS: IPRATROPIUM BROMIDE (0.02%) 0.5MG/2.5ML NEB HHN SCH ×4 (01:15→12:25)
[2022-10-09 04:00] VITALS: BP 135/68
[2022-10-09 08:00] VITALS: BP 116/76
[2022-10-09 12:00] VITALS: BP 138/63
[2022-10-09] MEDS ORDERED: NALOXONE HCL 0.4MG/ML VIAL IV PRN (14:45)
[2022-10-09 16:08] VITALS: BP 140/63
[2022-10-09] MEDS ORDERED: ALBUTEROL (0.083%) 2.5MG/3ML NEB HHN PRN (16:15)
[2022-10-09] MEDS ORDERED: IPRATROPIUM BROMIDE (0.02%) 0.5MG/2.5ML NEB HHN PRN (16:15)
[2022-10-09] MEDS ORDERED: GUAIFENESIN-DM 200MG-20MG/10ML UDC PO PRN (16:15)
[2022-10-09] MEDS: FUROSEMIDE 40MG TABLET PO SCH (17:09)
[2022-10-09] MEDS: APIXABAN 5 MG TABLET PO SCH (17:09)
[2022-10-09 20:00] VITALS: BP 115/64
[2022-10-09] MEDS ORDERED: CEFTRIAXONE 1,000 MG in DEXTROSE 5% WATER 50 ML IV SCH (20:00)
[2022-10-09] MEDS ORDERED: PNEUMOCOCCAL 23-VAL P-SAC VAC 0.5 ML IM ONE (21:00)
[2022-10-09] MEDS ORDERED: AZITHROMYCIN 500 MG in DEXT 5% WATER 250 ML IV SCH (21:00)
[2022-10-09] MEDS ORDERED: INFLUENZA VACCINE 05/PF 0.5 ML SYRINGE IM ONE (21:00)
[2022-10-10 04:00] VITALS: BP 120/71
[2022-10-10 07:35] LABS: BASOPHILS % 0.8 % (0.0-2.0); EOSINOPHILS % 1.8 % (0.0-5.0); HEMATOCRIT. 33.7 % (42.0-52.0); HEMOGLOBIN. 11.6 g/dL (14.0-18.0); LYMPHOCYTES % 22.9 % (20.0-50.0); MEAN CORPUSCULAR HEMOGLOBIN 31.5 pg (28.0-32.0); MEAN CORPUSCULAR VOLUME 91.5 fL (80.0-94.0); MEAN PLATELET VOLUME 8.1 fl (7.4-10.4); MONOCYTES % 9.9 % (2.0-8.0); NEUTROPHILS % 64.6 % (40.0-76.0); PLATELET 289 x1000/uL (130-400); RED BLOOD CELL COUNT 3.68 mill/uL (4.7-6.1); RED CELL DISTRIBUTION WIDTH 14.4 % (11.6-14.6)
[2022-10-10 08:00] VITALS: BP 128/69
[2022-10-10 08:29] LABS: CHLORIDE 104 mEq/L (98-107)
[2022-10-10] MEDS: FUROSEMIDE 40MG TABLET PO SCH (09:17)
[2022-10-10] MEDS: APIXABAN 5 MG TABLET PO SCH ×2 (09:17→17:38)
[2022-10-10 12:00] VITALS: BP 135/83
[2022-10-10] MEDS ORDERED: IOHEXOL-350 100 ML BOTTLE ONE (15:22)
[2022-10-10 16:00] VITALS: BP 132/72
[2022-10-10 18:36] VITALS: BP 132/72
[2022-10-10] MEDS ORDERED: DEXTROSE 50% WATER 50ML SYRINGE IV PRN (19:00)
[2022-10-10 20:00] VITALS: BP 136/72
[2022-10-10] MEDS: INSULIN LISPRO 100 UNITS/ML SUBCUT SCH (20:11)
[2022-10-10] MEDS: BLOOD SUGAR DIAGNOSTIC STRIP TEST SCH (21:03)
[2022-10-11] VITALS: BP 127/80
[2022-10-11 04:00] VITALS: BP 115/68
[2022-10-11] MEDS: BLOOD SUGAR DIAGNOSTIC STRIP TEST SCH (07:20)
[2022-10-11 08:20] VITALS: BP 117/73
[2022-10-11] MEDS: INSULIN LISPRO 100 UNITS/ML SUBCUT SCH ×2 (08:32→12:38)
[2022-10-11] MEDS ORDERED: INSULIN GLARGINE 100 UNITS/ML SUBCUT SCH (10:00)
[2022-10-11] MEDS: FUROSEMIDE 40MG TABLET PO SCH (10:16)
[2022-10-11] MEDS: APIXABAN 5 MG TABLET PO SCH (10:17)
[2022-10-11 12:00] VITALS: BP 129/68
[2022-10-11 12:42] VITALS: BP 129/68
[2022-10-11 16:00] VITALS: BP 146/85
[2022-10-11] MEDS ORDERED: FLUTICASONE PROPIONATE 50MCG/SPRAY BOTTLE BOTHNSTRLS SCH (21:00)
== END 2022-10-11 18:00 | disposition home or self-care (01) | DRG 145 ==
LOC: ER 12:12 → EDBEDREQSVC 15:17 → EDBEDREQ 15:17 → MICUSO 17:05 → EDBEDREQTM 17:13 → EDBEDREQ 17:13 → 6EST 20:44
PROVIDERS: ADMIT Internal Medicine; ATTEND Internal Medicine
DX: R04.2 Hemoptysis (principal); I50.23 Acute on chronic systolic (congestive) heart failure; D68.59 Other primary thrombophilia; I42.9 Cardiomyopathy, unspecified; I82.412 Acute embolism and thrombosis of left femoral vein; E11.9 Type 2 diabetes mellitus without complications; D64.9 Anemia, unspecified; I11.0 Hypertensive heart disease with heart failure; J45.909 Unspecified asthma, uncomplicated; K44.9 Diaphragmatic hernia without obstruction or gangrene; R26.89 Other abnormalities of gait and mobility; R09.82 Postnasal drip; F17.210 Nicotine dependence, cigarettes, uncomplicated; Z86.711 Personal history of pulmonary embolism; Z79.01 Long term (current) use of anticoagulants; Z86.16 Personal history of COVID-19; Z86.718 Personal history of other venous thrombosis and embolism; Z95.828 Presence of other vascular implants and grafts; Z82.49 Family history of ischemic heart disease and other diseases of the circulatory system
CPT/HCPCS: 36415; 71045; 71275; 74177; 80048; 80053; 82962; 83880; 84484; 85025; 85379; 90686; 90732; 93005; 93970; 94640; 97161; 99285; J0456; J0696; J1815; J7060; Q9967

== ENCOUNTER 2023-03-12 14:37 | Emergency (ER) | payer MEDICAID ==
[~2023-03-12] VITALS: Ht 175.3 cm; Wt 105.0 kg
[2023-03-12 14:47] VITALS: O2SAT 100
[2023-03-12 15:27] LABS: BASOPHILS % 0.3 % (0.0-2.0); HEMATOCRIT. 32.1 % (42.0-52.0); HEMOGLOBIN. 10.7 g/dL (14.0-18.0); LYMPHOCYTES % 25.1 % (20.0-50.0); MEAN CORPUSCULAR HEMOGLOBIN 28.7 pg (28.0-32.0); MEAN CORPUSCULAR VOLUME 86.6 fL (80.0-94.0); MONOCYTES % 13.6 % (2.0-8.0); PLATELET 275 x1000/uL (130-400); RED BLOOD CELL COUNT 3.71 mill/uL (4.7-6.1); RED CELL DISTRIBUTION WIDTH 14.1 % (11.6-14.6)
[2023-03-12 15:36] LABS: CHLORIDE 105 mEq/L (98-107)
[2023-03-12 16:07] LABS: CLARITY URINE CLEAR (CLEAR); COLOR URINE YELLOW (YELLOW); KETONES URINE TRACE (NEGATIVE); LEUKOCYTE ESTERASE URINE NEGATIVE (NEGATIVE); NITRITE URINE NEGATIVE (NEGATIVE); OCCULT BLOOD URINE NEGATIVE (NEGATIVE); PH URINE 5.5 (4.5-8.0); PROTEIN URINE 1+ (NEGATIVE)
[2023-03-13] MEDS ORDERED: FUROSEMIDE 40MG/4ML VIAL IVP ONE (00:45)
[2023-03-13] MEDS ORDERED: CARV3.1242 PO (02:36)
[2023-03-13] MEDS ORDERED: LISI-186 PO (02:36)
[2023-03-13] MEDS ORDERED: FURO40TA5 PO (02:36)
[2023-03-13 03:04] VITALS: BP 133/71; PULSE 95; RESP 20; TEMP 98.1
== END 2023-03-13 03:00 | disposition home or self-care (01) ==
LOC: ER 14:37
DX: R07.89 Other chest pain (principal); I10 Essential (primary) hypertension; E11.9 Type 2 diabetes mellitus without complications; Z98.890 Other specified postprocedural states
CPT/HCPCS: 80053; 81003; 83880; 85025; 84484; 36415; 71045; 93005; 99283; 96374; J1940; Z7610 ×3

== ENCOUNTER 2024-07-07 21:58 | Inpatient (IN) | payer MEDICARE, MEDICAID ==
[~2024-07-07] VITALS: Ht 175.3 cm; Wt 83.9 kg
[~2024-07-07 21:58] MED LIST changes: +ALBU6.7H15 INH; -CARV3.1242 PO; +COR6 MT; +DOCU-150 PO; -DOXA1TAB2 PO; +FURO-151 MT; -FURO40TA5 PO; +GLIP5TAB22 PO; +LEVO-65 MT; -LISI-186 PO; +LOSA25TA26 MT; +MAG-55 MT; -METF-414 PO; +METF-416 PO; +METH-371 PO; +OMEP40CA20 MT; +POTA-205 PO; +TAMS-11 MT
[2024-07-07 23:16] LABS: BASOPHILS % 0.4 % (0.0-2.0); EOSINOPHILS % 0.3 % (0.0-5.0); HEMATOCRIT. 34.3 % (42.0-52.0); HEMOGLOBIN. 11.2 g/dL (14.0-18.0); LYMPHOCYTES % 19.6 % (20.0-50.0); MEAN CORPUSCULAR HEMOGLOBIN 28.8 pg (28.0-32.0); MEAN CORPUSCULAR HGB CONC 32.6 g/dL (31.0-37.0); MEAN CORPUSCULAR VOLUME 88.2 fL (80.0-94.0); MEAN PLATELET VOLUME 7.7 fl (7.4-10.4); MONOCYTES % 11.4 % (2.0-8.0); NEUTROPHILS % 68.3 % (40.0-76.0); PLATELET 195 x1000/uL (130-400); RED BLOOD CELL COUNT 3.89 mill/uL (4.7-6.1); RED CELL DISTRIBUTION WIDTH 14.5 % (11.6-14.6); WHITE BLOOD COUNT 5.9 x1000/uL (4.5-11.0)
[2024-07-07 23:24] LABS: CHLORIDE 104 mEq/L (98-107); POTASSIUM 3.7 mEq/L (3.5-5.1); SODIUM 138 mEq/L (136-145)
[2024-07-07 23:25] LABS: CALCIUM 10.2 mg/dL (8.7-10.4); CARBON DIOXIDE 28 mEq/L (21-32)
[2024-07-07 23:26] LABS: INR 1.1; PROTHROMBIN TIME 12.5 sec (9.6-11.0)
[2024-07-07 23:30] LABS: GLUCOSE 152 mg/dL (70-105); UREA NITROGEN BLOOD 10 mg/dL (9-23)
[2024-07-07 23:32] LABS: ALANINE AMINOTRANSFERASE 26 IU/L (10-49); ALBUMIN 3.9 g/dL (3.2-4.8); ASPARTATE AMINOTRANSFERASE 44 IU/L (<34); BILIRUBIN DIRECT 0.8 mg/dL (<=3.0)
[2024-07-07 23:33] LABS: BILIRUBIN TOTAL 1.7 mg/dL (0.1-1.0); PROTEIN TOTAL 7.7 g/dL (6.0-8.3)
[2024-07-07] MEDS: MORPHINE SULFATE 4 MG/ML INJ (FOR IV/IM USE) IV STA (23:50)
[2024-07-07] MEDS: ONDANSETRON HCL 4MG/2ML INJ IV STA (23:50)
[2024-07-07] MEDS: FUROSEMIDE 40MG/4ML VIAL IVP NR (23:50)
[2024-07-08 00:11] LABS: ETHANOL BLOOD < 10 mg/dL (<10); TROPONIN I HIGH SENSITIVITY 54 ng/L (3.0-53)
[2024-07-08] MEDS: ASPIRIN 325MG EC TABLET PO NR (00:30)
[2024-07-08 04:38] LABS: CLARITY URINE CLEAR (CLEAR); COLOR URINE YELLOW (YELLOW); GLUCOSE URINE NEGATIVE (NEGATIVE); KETONES URINE NEGATIVE (NEGATIVE); LEUKOCYTE ESTERASE URINE NEGATIVE (NEGATIVE); NITRITE URINE NEGATIVE (NEGATIVE); OCCULT BLOOD URINE TRACE (NEGATIVE); PH URINE 5.5 (4.5-8.0); PROTEIN URINE NEGATIVE (NEGATIVE); SPECIFIC GRAVITY URINE 1.012 (1.005-1.030); UROBILINOGEN URINE 0.2 E.U./dL (0.2-1.0)
[2024-07-08 04:51] LABS: *AMPHETAMINES SCREEN URINE NEGATIVE (NEGATIVE)
[2024-07-08 04:52] LABS: *BARBITURATES SCREEN URINE NEGATIVE (NEGATIVE); *BENZODIAZEPINES SCREEN URINE NEGATIVE (NEGATIVE); *COCAINE SCREEN URINE NEGATIVE (NEGATIVE); CANNABINOID URINE SCREEN NEGATIVE (NEGATIVE); ECSTASY MDMA SCREEN URINE NEGATIVE (NEGATIVE); METHADONE URINE SCREEN NEGATIVE (NEGATIVE); OPIATES URINE SCREEN PRESUMPTIVE POSITIVE (NEGATIVE); PHENCYCLIDINE URINE SCREEN NEGATIVE (NEGATIVE)
[2024-07-08 04:56] LABS: BACTERIA URINE NONE SEEN; RBC URINE NONE SEEN /hpf (0-2); SQUAMOUS EPITHELIAL CELL URINE NONE SEEN /lpf (RARE/1+); WBC URINE NONE SEEN /hpf (0-2)
[2024-07-08 06:54] LABS: TROPONIN I HIGH SENSITIVITY 54 ng/L (3.0-53)
[2024-07-08 09:39] LABS: HEMATOCRIT. 31.5 % (42.0-52.0); HEMOGLOBIN. 10.5 g/dL (14.0-18.0); MEAN CORPUSCULAR HEMOGLOBIN 29.2 pg (28.0-32.0); MEAN CORPUSCULAR HGB CONC 33.3 g/dL (31.0-37.0); MEAN CORPUSCULAR VOLUME 87.6 fL (80.0-94.0); MEAN PLATELET VOLUME 8.4 fl (7.4-10.4); PLATELET 180 x1000/uL (130-400); RED CELL DISTRIBUTION WIDTH 14.2 % (11.6-14.6); WHITE BLOOD COUNT 5.2 x1000/uL (4.5-11.0)
[2024-07-08 09:41] LABS: CARBON DIOXIDE 27 mEq/L (21-32); CHLORIDE 106 mEq/L (98-107); DIFFERENTIAL COMMENT 1; POTASSIUM 3.4 mEq/L (3.5-5.1); SODIUM 140 mEq/L (136-145)
[2024-07-08 09:42] LABS: CALCIUM 9.7 mg/dL (8.7-10.4)
[2024-07-08 09:47] LABS: CREATININE 0.9 mg/dL (0.6-1.3); GLUCOSE 102 mg/dL (70-105); UREA NITROGEN BLOOD 10 mg/dL (9-23)
[2024-07-08 09:48] LABS: ALANINE AMINOTRANSFERASE 23 IU/L (10-49); ALBUMIN 3.4 g/dL (3.2-4.8); ASPARTATE AMINOTRANSFERASE 41 IU/L (<34)
[2024-07-08 09:49] LABS: BILIRUBIN DIRECT 0.7 mg/dL (<=3.0); BILIRUBIN TOTAL 1.4 mg/dL (0.1-1.0); PROTEIN TOTAL 6.8 g/dL (6.0-8.3)
[2024-07-08] MEDS: ENOXAPARIN 40MG/0.4ML SYR SUBCUT SCH (10:45)
[2024-07-08] MEDS: PANTOPRAZOLE SODIUM 40 MG/VIAL IV SCH (10:45)
[2024-07-08] MEDS ORDERED: DOCUSATE SODIUM 100MG CAPSULE PO PRN (11:00)
[2024-07-08] MEDS ORDERED: DEXTROSE 50% WATER 50ML SYRINGE IV PRN (11:00)
[2024-07-08] MEDS ORDERED: ONDANSETRON HCL 4MG/2ML INJ IV PRN (11:00)
[2024-07-08] MEDS ORDERED: CLONIDINE 0.1MG TABLET PO PRN (11:00)
[2024-07-08] MEDS ORDERED: IPRATROPIUM/ALBUTEROL 0.5-3(2.5)MG/3ML NEB HHN PRN (11:00)
[2024-07-08] MEDS ORDERED: ACETAMINOPHEN 325MG TABLET PO PRN ×2 (11:00)
[2024-07-08] MEDS: POTASSIUM CHLORIDE 20MEQ TABLET SR PO NR (11:29)
[2024-07-08] MEDS: BLOOD SUGAR DIAGNOSTIC STRIP TEST SCH (12:43)
[2024-07-08] MEDS: INSULIN LISPRO 100 UNITS/ML SUBCUT SCH (12:46)
[2024-07-08] MEDS: FUROSEMIDE 40MG/4ML VIAL IVP NR ×2 (12:58→17:35)
[2024-07-08] MEDS: IOHEXOL-350 100 ML BOTTLE ONE (12:59)
[2024-07-08 14:15] LABS: THYROID STIMULATING HORMONE < 0.10 uIU/mL (0.55-4.78)
[2024-07-08 14:16] LABS: T4 FREE 6.41 ng/dL (0.89-1.76)
[2024-07-08] MEDS ORDERED: IOHEXOL-350 100 ML BOTTLE ONE (14:54)
[2024-07-08 15:23] LABS: PLATELET ESTIMATE NORMAL
[2024-07-08 15:45] VITALS: BP 124/67; PULSE 102; RESP 16; TEMP 36.1956
[2024-07-08 16:00] VITALS: BP 124/67; PULSE 102; RESP 16; TEMP 36.16956; O2SAT 99
[2024-07-08 16:16] LABS: CREATINE KINASE MB FRACTION 0.9 ng/mL (0.5-3.6)
[2024-07-08] MEDS: POTASSIUM CHLORIDE 20MEQ/PACKET PO NR (17:35)
[2024-07-08] MEDS ORDERED: PNEUMOCOCCAL 20-VAL CONJ-DIP CRM 0.5ML IM ONE (19:15)
[2024-07-08 20:00] VITALS: BP 135/78; PULSE 110; RESP 18; TEMP 36.28068; O2SAT 97
[2024-07-08] MEDS: PIPERACILLIN/TAZO 3.375G/50ML 50 ML IV SCH (21:56)
[2024-07-08] MEDS: CARVEDILOL 6.25 MG TABLET PO SCH (21:56)
[2024-07-08] MEDS ORDERED: IOHEXOL-300 100 ML BOTTLE ONE (22:59)
[2024-07-09] VITALS: BP 126/67; PULSE 100; RESP 19; TEMP 36.72516; O2SAT 98
[2024-07-09 01:19] LABS: CREATINE KINASE MB FRACTION < 0.5 ng/mL (0.5-3.6)
[2024-07-09 01:22] LABS: CREATINE KINASE 49 IU/L (46-171)
[2024-07-09 01:43] LABS: TROPONIN I HIGH SENSITIVITY 77 ng/L (3.0-53)
[2024-07-09 04:00] VITALS: BP 107/63; PULSE 91; RESP 20; TEMP 36.78072; O2SAT 98
[2024-07-09 07:52] LABS: CHLORIDE 105 mEq/L (98-107); SODIUM 141 mEq/L (136-145)
[2024-07-09 07:53] LABS: CALCIUM 9.5 mg/dL (8.7-10.4); CARBON DIOXIDE 27 mEq/L (21-32)
[2024-07-09 07:58] LABS: GLUCOSE 98 mg/dL (70-105); IRON 34 ug/dL (65-175)
[2024-07-09 07:59] LABS: BILIRUBIN TOTAL 1.4 mg/dL (0.1-1.0); LDL CHOLESTEROL 49 mg/dL (5-100); TRIGLYCERIDE 65 mg/dL (0-150); UREA NITROGEN BLOOD 16 mg/dL (9-23)
[2024-07-09 08:00] VITALS: BP 104/46; PULSE 87; RESP 18; TEMP 36.78072; O2SAT 98
[2024-07-09 08:00] LABS: ALANINE AMINOTRANSFERASE 24 IU/L (10-49); ALBUMIN 3.4 g/dL (3.2-4.8); ASPARTATE AMINOTRANSFERASE 36 IU/L (<34); BILIRUBIN DIRECT 0.7 mg/dL (<=3.0); CHOLESTEROL 98 mg/dL (<200); HDL CHOLESTEROL 26 mg/dL (>55); PHOSPHORUS 3.9 mg/dL (2.5-4.9)
[2024-07-09 08:01] LABS: PROTEIN TOTAL 7.1 g/dL (6.0-8.3); TOTAL IRON BINDING CAPACITY 261 ug/dl (250-425)
[2024-07-09 08:02] LABS: CREATININE 1.7 mg/dL (0.6-1.3)
[2024-07-09] MEDS: FUROSEMIDE 40MG/4ML VIAL IVP SCH (08:29)
[2024-07-09] MEDS: LOSARTAN 25 MG TABLET PO SCH (08:29)
[2024-07-09] MEDS ORDERED: ASPIRIN 81MG EC TABLET PO SCH (09:00)
[2024-07-09 09:58] LABS: HEMATOCRIT. 32.9 % (42.0-52.0); HEMOGLOBIN. 10.7 g/dL (14.0-18.0); MEAN CORPUSCULAR HEMOGLOBIN 28.5 pg (28.0-32.0); MEAN CORPUSCULAR HGB CONC 32.4 g/dL (31.0-37.0); MEAN CORPUSCULAR VOLUME 87.8 fL (80.0-94.0); MEAN PLATELET VOLUME 8.7 fl (7.4-10.4); PLATELET 192 x1000/uL (130-400); RED BLOOD CELL COUNT 3.74 mill/uL (4.7-6.1); RED CELL DISTRIBUTION WIDTH 14.4 % (11.6-14.6); WHITE BLOOD COUNT 5.9 x1000/uL (4.5-11.0)
[2024-07-09 10:05] LABS: DIFFERENTIAL COMMENT 1
[2024-07-09 12:00] VITALS: BP 119/68; PULSE 99; RESP 18; TEMP 36.61404; O2SAT 99
[2024-07-09 12:23] LABS: FERRITIN 110 ng/mL (22-322); FOLIC ACID (FOLATE) SERUM 8.33 ng/mL (>5.38); VITAMIN B12 SERUM 1338 pg/mL (211-911)
[2024-07-09 12:32] LABS: HEPATITIS B SURFACE ANTIGEN NEGATIVE (Negative)
[2024-07-09 12:55] LABS: HEPATITIS C AB NON REACTIVE (Neg) (Negative)
[2024-07-09] MEDS: SODIUM CHLORIDE 0.9% 1,000 ML IV SCH (13:18)
[2024-07-09 16:00] VITALS: BP 114/54; PULSE 96; RESP 18; TEMP 36.78072; O2SAT 99
[2024-07-09] MEDS: ENOXAPARIN 80MG/0.8ML SYR SUBCUT SCH (18:35)
[2024-07-09 20:00] VITALS: BP 135/70; PULSE 103; RESP 19; TEMP 36.44736; O2SAT 99
[2024-07-10] VITALS: BP 128/67; PULSE 93; RESP 20; TEMP 36.78072; O2SAT 98
[2024-07-10 04:00] VITALS: BP 118/63; PULSE 84; RESP 19; TEMP 36.22512; O2SAT 100
[2024-07-10 08:00] VITALS: BP 125/52; PULSE 96; RESP 18; TEMP 36.61404; O2SAT 99
[2024-07-10 12:00] VITALS: BP 103/53; PULSE 83; RESP 18; TEMP 36.78072; O2SAT 99
[2024-07-10 16:00] VITALS: BP 115/52; PULSE 89; RESP 18; TEMP 36.61404; O2SAT 96
[2024-07-10 17:28] LABS: PLATELET ESTIMATE NORMAL
[2024-07-10 20:00] VITALS: BP 108/61; PULSE 120; RESP 18; TEMP 36.72516; O2SAT 98
[2024-07-10 22:24] LABS: HEMATOCRIT 33.6 % (42.0-52.0); HEMOGLOBIN 11.1 g/dL (14.0-18.0); MEAN CORPUSCULAR HEMOGLOBIN 29.2 pg (28.0-32.0); MEAN CORPUSCULAR HGB CONC 32.9 g/dL (31.0-37.0); MEAN CORPUSCULAR VOLUME 88.6 fL (80.0-94.0); PLATELET 188 x1000/uL (130-400); RED BLOOD CELL COUNT 3.79 mill/uL (4.7-6.1); RED CELL DISTRIBUTION WIDTH 14.6 % (11.6-14.6)
[2024-07-11] VITALS: BP 129/59; PULSE 118; RESP 20; TEMP 36.78072; O2SAT 100
[2024-07-11 04:00] VITALS: BP 134/65; PULSE 97; RESP 20; TEMP 36.55848; O2SAT 98
[2024-07-11 06:14] LABS: POTASSIUM 3.6 mEq/L (3.5-5.1)
[2024-07-11 06:15] LABS: CALCIUM 8.9 mg/dL (8.7-10.4)
[2024-07-11 06:28] LABS: HEMATOCRIT. 31.1 % (42.0-52.0); HEMOGLOBIN. 10.1 g/dL (14.0-18.0); MEAN CORPUSCULAR HEMOGLOBIN 28.2 pg (28.0-32.0); MEAN CORPUSCULAR HGB CONC 32.6 g/dL (31.0-37.0); MEAN CORPUSCULAR VOLUME 86.4 fL (80.0-94.0); MEAN PLATELET VOLUME 8.4 fl (7.4-10.4); PLATELET 180 x1000/uL (130-400); RED CELL DISTRIBUTION WIDTH 14.1 % (11.6-14.6); WHITE BLOOD COUNT 5.2 x1000/uL (4.5-11.0)
[2024-07-11 06:50] LABS: CREATININE 3.3 mg/dL (0.6-1.3)
[2024-07-11 07:34] LABS: DIFFERENTIAL COMMENT 1
[2024-07-11 08:00] VITALS: BP 138/86; PULSE 89; RESP 18; TEMP 36.89184; O2SAT 98
[2024-07-11 12:00] VITALS: BP 129/65; PULSE 86; RESP 16; TEMP 36.72516; O2SAT 97
[2024-07-11] MEDS ORDERED: HEPARIN 25,000 UNITS PREMIX 250 ML IV SCH (14:30)
[2024-07-11] MEDS ORDERED: HEPARIN BOLUS PRN aPTT 37-44 IV (14:45)
[2024-07-11] MEDS ORDERED: HEPARIN BOLUS PRN aPTT <36 IV (14:45)
[2024-07-11 16:00] VITALS: BP 129/74; PULSE 86; RESP 20; TEMP 36.72516; O2SAT 98
[2024-07-11 16:57] LABS: GIANT PLATELETS 1+; PLATELET ESTIMATE NORMAL
[2024-07-11 18:39] LABS: POTASSIUM 3.9 mEq/L (3.5-5.1)
[2024-07-11 18:41] LABS: CALCIUM 8.7 mg/dL (8.7-10.4)
[2024-07-11 18:45] LABS: CREATININE 3.4 mg/dL (0.6-1.3)
[2024-07-11 20:00] VITALS: BP 115/66; PULSE 89; RESP 18; TEMP 36.50292; O2SAT 99
[2024-07-11] MEDS: HEPARIN 80 UNITS/KG BOLUS IV NR (22:06)
[2024-07-11] MEDS: HEPARIN 25,000 UNITS PREMIX 250 ML IV SCH (22:12)
[2024-07-12] VITALS: BP 106/56; PULSE 80; RESP 18; TEMP 37.00296; O2SAT 99
[2024-07-12] MEDS ORDERED: HEPARIN BOLUS PRN aPTT 37-44 IV (02:00)
[2024-07-12 04:00] VITALS: BP 129/75; PULSE 84; RESP 18; TEMP 37.00296; O2SAT 100
[2024-07-12 04:20] LABS: HEMATOCRIT. 31.5 % (42.0-52.0); HEMOGLOBIN. 10.7 g/dL (14.0-18.0); MEAN CORPUSCULAR HEMOGLOBIN 29.2 pg (28.0-32.0); MEAN CORPUSCULAR HGB CONC 33.8 g/dL (31.0-37.0); MEAN CORPUSCULAR VOLUME 86.4 fL (80.0-94.0); MEAN PLATELET VOLUME 7.6 fl (7.4-10.4); PLATELET 172 x1000/uL (130-400); RED BLOOD CELL COUNT 3.65 mill/uL (4.7-6.1); RED CELL DISTRIBUTION WIDTH 14.5 % (11.6-14.6); WHITE BLOOD COUNT 5.3 x1000/uL (4.5-11.0)
[2024-07-12 04:33] LABS: DIFFERENTIAL COMMENT 1
[2024-07-12 04:37] LABS: POTASSIUM 3.6 mEq/L (3.5-5.1)
[2024-07-12 04:39] LABS: CALCIUM 8.7 mg/dL (8.7-10.4)
[2024-07-12 04:44] LABS: CREATININE 3.3 mg/dL (0.6-1.3)
[2024-07-12] MEDS ORDERED: LIDOCAINE HCL 1% 10 MG/ML 10ML VIAL ONE (07:37)
[2024-07-12 08:00] VITALS: BP 117/66; PULSE 77; RESP 17; TEMP 36.05844; O2SAT 95
[2024-07-12 12:00] VITALS: BP 121/61; PULSE 90; RESP 17; TEMP 36.16956; O2SAT 98
[2024-07-12 16:00] VITALS: BP 131/70; PULSE 70; RESP 18; TEMP 36.28068; O2SAT 96
[2024-07-12] MEDS: HEPARIN 25,000 UNITS PREMIX 250 ML IV SCH (18:07)
[2024-07-12 18:14] LABS: PLATELET ESTIMATE NORMAL
[2024-07-12 20:00] VITALS: BP 124/69; PULSE 85; RESP 18; TEMP 36.55848; O2SAT 100
[2024-07-13] VITALS: BP 121/66; PULSE 83; RESP 18; TEMP 36.89184; O2SAT 100
[2024-07-13] MEDS: HEPARIN BOLUS PRN aPTT <36 IV (01:04)
[2024-07-13 04:00] VITALS: BP 135/76; PULSE 79; RESP 18; TEMP 36.55848; O2SAT 100
[2024-07-13 07:39] LABS: CHLORIDE 106 mEq/L (98-107); POTASSIUM 3.5 mEq/L (3.5-5.1); SODIUM 138 mEq/L (136-145)
[2024-07-13 07:40] LABS: CALCIUM 9.4 mg/dL (8.7-10.4); CARBON DIOXIDE 26 mEq/L (21-32)
[2024-07-13 07:45] LABS: CREATININE 2.6 mg/dL (0.6-1.3); GLUCOSE 113 mg/dL (70-105); UREA NITROGEN BLOOD 28 mg/dL (9-23)
[2024-07-13 07:47] LABS: PHOSPHORUS 3.6 mg/dL (2.5-4.9)
[2024-07-13 08:00] VITALS: BP 148/64; PULSE 78; RESP 19; TEMP 36.05844; O2SAT 100
[2024-07-13 08:49] LABS: BASOPHILS % 0.4 % (0.0-2.0); EOSINOPHILS % 1.7 % (0.0-5.0); HEMATOCRIT. 32.7 % (42.0-52.0); LYMPHOCYTES % 34.2 % (20.0-50.0); MEAN CORPUSCULAR HEMOGLOBIN 29.2 pg (28.0-32.0); MEAN CORPUSCULAR HGB CONC 33.7 g/dL (31.0-37.0); MEAN CORPUSCULAR VOLUME 86.6 fL (80.0-94.0); MEAN PLATELET VOLUME 8.7 fl (7.4-10.4); MONOCYTES % 14.9 % (2.0-8.0); NEUTROPHILS % 48.8 % (40.0-76.0); PLATELET 171 x1000/uL (130-400); RED BLOOD CELL COUNT 3.78 mill/uL (4.7-6.1); RED CELL DISTRIBUTION WIDTH 14.4 % (11.6-14.6); WHITE BLOOD COUNT 5.9 x1000/uL (4.5-11.0)
[2024-07-13 11:31] LABS: CLARITY URINE CLEAR (CLEAR); COLOR URINE YELLOW (YELLOW); GLUCOSE URINE NEGATIVE (NEGATIVE); KETONES URINE NEGATIVE (NEGATIVE); LEUKOCYTE ESTERASE URINE NEGATIVE (NEGATIVE); NITRITE URINE NEGATIVE (NEGATIVE); OCCULT BLOOD URINE NEGATIVE (NEGATIVE); PROTEIN URINE 2+ (NEGATIVE); SPECIFIC GRAVITY URINE 1.014 (1.005-1.030); UROBILINOGEN URINE 0.2 E.U./dL (0.2-1.0)
[2024-07-13 11:51] LABS: BACTERIA URINE NONE SEEN; RBC URINE 0-2 /hpf (0-2); SQUAMOUS EPITHELIAL CELL URINE NONE SEEN /lpf (RARE/1+); WBC URINE 0-2 /hpf (0-2); YEAST URINE NONE SEEN
[2024-07-13 12:00] VITALS: BP 113/68; PULSE 81; RESP 17; TEMP 36.72516; O2SAT 100
[2024-07-13 16:00] VITALS: BP 112/46; PULSE 81; RESP 17; TEMP 36.44736; O2SAT 96
[2024-07-13 20:00] VITALS: BP 132/79; PULSE 91; RESP 18; TEMP 37.00296; O2SAT 100
[2024-07-14] VITALS: BP 118/64; PULSE 80; RESP 18; TEMP 36.50292; O2SAT 100
[2024-07-14 04:00] VITALS: BP 122/55; PULSE 78; RESP 18; TEMP 36.6696; O2SAT 100
[2024-07-14 06:07] LABS: CALCIUM 9.6 mg/dL (8.7-10.4); POTASSIUM 3.5 mEq/L (3.5-5.1)
[2024-07-14 06:11] LABS: HEMATOCRIT. 31.5 % (42.0-52.0); HEMOGLOBIN. 10.2 g/dL (14.0-18.0); MEAN CORPUSCULAR HEMOGLOBIN 28.1 pg (28.0-32.0); MEAN CORPUSCULAR HGB CONC 32.3 g/dL (31.0-37.0); MEAN CORPUSCULAR VOLUME 87.2 fL (80.0-94.0); MEAN PLATELET VOLUME 8.6 fl (7.4-10.4); PLATELET 162 x1000/uL (130-400); RED BLOOD CELL COUNT 3.62 mill/uL (4.7-6.1); RED CELL DISTRIBUTION WIDTH 14.3 % (11.6-14.6); WHITE BLOOD COUNT 6.4 x1000/uL (4.5-11.0)
[2024-07-14 06:13] LABS: CREATININE 2.2 mg/dL (0.6-1.3)
[2024-07-14 06:15] LABS: DIFFERENTIAL COMMENT 1
[2024-07-14 08:00] VITALS: BP 144/84; PULSE 84; RESP 18; TEMP 36.78072; O2SAT 98
[2024-07-14 12:00] VITALS: BP 140/82; PULSE 80; RESP 18; TEMP 36.6696; O2SAT 99
[2024-07-14 15:07] LABS: PROTEIN C FUNCTIONAL 33 % (73-180)
[2024-07-14 15:44] LABS: PLATELET ESTIMATE NORMAL
[2024-07-14 16:00] VITALS: BP 133/78; PULSE 78; RESP 18; TEMP 36.61404; O2SAT 99
[2024-07-14 20:00] VITALS: BP 135/82; PULSE 77; RESP 18; TEMP 36.78072; O2SAT 99
[2024-07-14] MEDS: APIXABAN 5 MG TABLET PO SCH (21:23)
[2024-07-15] VITALS: BP 128/66; PULSE 81; RESP 18; TEMP 36.61404; O2SAT 99
[2024-07-15 04:00] VITALS: BP 135/72; PULSE 78; RESP 18; TEMP 36.78072; O2SAT 99
[2024-07-15 08:04] VITALS: BP 117/67; PULSE 70; RESP 18; TEMP 36.72516; O2SAT 97
[2024-07-15 12:06] VITALS: BP 125/70; PULSE 75; RESP 18; TEMP 36.3918; O2SAT 99
[2024-07-15 13:02] LABS: POTASSIUM 4.1 mEq/L (3.5-5.1)
[2024-07-15 13:04] LABS: CALCIUM 9.4 mg/dL (8.7-10.4)
[2024-07-15 13:07] LABS: BASOPHILS % 0.1 % (0.0-2.0); HEMATOCRIT. 31.7 % (42.0-52.0); HEMOGLOBIN. 10.2 g/dL (14.0-18.0); LYMPHOCYTES % 21.3 % (20.0-50.0); MEAN CORPUSCULAR VOLUME 87.6 fL (80.0-94.0); MEAN PLATELET VOLUME 8.8 fl (7.4-10.4); MONOCYTES % 12.7 % (2.0-8.0); NEUTROPHILS % 63.9 % (40.0-76.0); PLATELET 170 x1000/uL (130-400); RED BLOOD CELL COUNT 3.62 mill/uL (4.7-6.1); RED CELL DISTRIBUTION WIDTH 14.7 % (11.6-14.6); WHITE BLOOD COUNT 6.6 x1000/uL (4.5-11.0)
[2024-07-15 13:08] LABS: CREATININE 1.7 mg/dL (0.6-1.3)
[2024-07-15] MEDS ORDERED: LEVO-65 MT (14:19)
[2024-07-15 15:25] VITALS: BP 125/70; PULSE 75; TEMP 97.9; O2SAT 99
[2024-07-15 15:49] VITALS: BP 122/66; PULSE 77; RESP 19; TEMP 36.61404; O2SAT 96
== END 2024-07-15 19:00 | disposition home or self-care (01) | DRG 280 ==
LOC: ER 21:58 → 5WST 07-08 00:28 → EDBEDREQ 07-08 00:49 → EDBEDREQDT 07-08 00:49 → EDBEDREQTM 07-08 00:49 → 7WST 07-08 18:30
PROVIDERS: ADMIT Internal Medicine; ATTEND Internal Medicine
PROC: 02HV33Z Insertion of Infusion Device into Superior Vena Cava, Percutaneous Approach (ICD-10-PCS; principal; 2024-07-12)
PROC: B548ZZA Ultrasonography of Superior Vena Cava, Guidance (ICD-10-PCS; 2024-07-12)
PROC: B518YZA Fluoroscopy of Superior Vena Cava using Other Contrast, Guidance (ICD-10-PCS; 2024-07-12)
DX: I13.0 Hypertensive heart and chronic kidney disease with heart failure and stage 1 through stage 4 chronic kidney disease, or unspecified chronic kidney disease (principal); I50.23 Acute on chronic systolic (congestive) heart failure; I21.4 Non-ST elevation (NSTEMI) myocardial infarction; J18.9 Pneumonia, unspecified organism; I82.412 Acute embolism and thrombosis of left femoral vein; N17.9 Acute kidney failure, unspecified; R04.2 Hemoptysis; D64.9 Anemia, unspecified; E87.6 Hypokalemia; N18.9 Chronic kidney disease, unspecified; E11.22 Type 2 diabetes mellitus with diabetic chronic kidney disease; R74.01 Elevation of levels of liver transaminase levels; Z86.711 Personal history of pulmonary embolism; Z86.718 Personal history of other venous thrombosis and embolism; Z79.01 Long term (current) use of anticoagulants; Z82.49 Family history of ischemic heart disease and other diseases of the circulatory system
CPT/HCPCS: 36415; 36573; 71045; 71275; 74177; 76770; 80048; 80061; 80076; 80305; 80320; 81003; 82550; 82553; 82607; 82728; 82746; 82962; 83036; 83540; 83550; 83605; 83735; 83880; 84100; 84439; 84443; 84480; 84484; 85025; 85027; 85044; 85303; 85306; 86705; 86850; 86900; 87340; 93005; 93306; 93970; 99285; C1725; C1893; J1644; J1650; J1815; J1940; J2270; J2405; J2470; J2543; J3490; J7030; Q9967; G0480